=== PATIENT | male | born 1945 | race Caucasian/White ===

== ENCOUNTER 2017-07-04 07:08 | Day surgery (SDC) | payer MEDICARE ==
[~2017-07-04] VITALS: Ht 162.6 cm; Wt 115.8 kg
[~2017-07-04 07:08] MED LIST: B-COMPLEX PLUS1 TAB PO; BETAPACE AF160 MG PO; BUMEX2 MG PO; CADUET 5 MG-101 TAB PO; CARDURA 8MG TAB8 MG PO; COUMADIN 1MG1 MG/TAB PO; COUMADIN 3MG3 MG/TAB PO; COUMADIN4 MG PO; DUO-KAPS1 CAP PO; FLONASE NASAL S16 GM NS; LEVAQUIN 5500 MG/TA1 PO; MAREPA1200 MG PO; PRAVACHOL 40MG40 MG PO; VISTARIL50 MG PO
[2017-07-04 07:34] VITALS: BP 129/90; PULSE 74; TEMP 97.6
[2017-07-04] MEDS ORDERED: COUMADIN 77.5 MG/TAB PO (08:11)
[2017-07-04] MEDS ORDERED: LOTREL 5/10MG C1 CAP PO (08:12)
[2017-07-04] MEDS ORDERED: LASIX 40MG TABL40 MG PO (08:13)
[2017-07-04] MEDS ORDERED: BETAPACE 80MG80 MG PO (08:13)
[2017-07-04] MEDS ORDERED: CARDURA 8MG TAB8 MG PO (08:14)
[2017-07-04] MEDS ORDERED: ASTELIN NASAL S34 ML NAS (08:14)
[2017-07-04] MEDS ORDERED: FLONASE NASAL S16 GM NS (08:15)
[2017-07-04] MEDS ORDERED: MULTI VITAMINS1 TAB PO (08:15)
[2017-07-04] MEDS ORDERED: FISH OIL 1000MG1 CAP PO (08:16)
[2017-07-04] MEDS ORDERED: STOOL SOFTENER100 M2 PO (08:16)
[2017-07-04] MEDS ORDERED: B-121000 MCG PO (08:16)
[2017-07-04] MEDS ORDERED: METAMUCIL3.4 GM/DOS PO (08:17)
[2017-07-04 09:05] VITALS: BP 129/90; PULSE 72; TEMP 97.4
[2017-07-04 09:20] VITALS: BP 137/100; PULSE 61
[2017-07-04 10:43] VITALS: BP 138/90; PULSE 72
== END 2017-07-04 09:50 | disposition home or self-care (01) ==
LOC: SDCO 07:08
DX: Z12.11 Encounter for screening for malignant neoplasm of colon (principal); K57.30 Diverticulosis of large intestine without perforation or abscess without bleeding; K64.0 First degree hemorrhoids; I48.91 Unspecified atrial fibrillation; I10 Essential (primary) hypertension; G47.33 Obstructive sleep apnea (adult) (pediatric); F17.220 Nicotine dependence, chewing tobacco, uncomplicated; E66.01 Morbid (severe) obesity due to excess calories; Z79.01 Long term (current) use of anticoagulants
CPT/HCPCS: OP; J2704; J7030

== ENCOUNTER 2020-12-12 11:47 | Inpatient (IN) | payer MEDICARE ==
[~2020-12-12 11:47] MED LIST changes: +ALDACTONE 25MG25 M1 PO; +ASTELIN NASAL S34 ML NAS; +B-121000 MCG PO; +BETAPACE 80MG80 MG PO; +COUMADIN 77.5 MG/TAB PO; +FISH OIL 1000MG1 CAP PO; +K-DUR20 MEQ PO; +LASIX 40MG TABL40 MG PO; +LOTREL 5/10MG C1 CAP PO; +METAMUCIL3.4 GM/DOS PO; +MULTI VITAMINS1 TAB PO; +PROBIOTIC ACID1 EAC3 PO; +STOOL SOFTENER100 M2 PO; +TOPROL XL 50MG50 MG PO; +ZYLOPRIM 300MG300 MG PO
[2020-12-12 13:14] VITALS: BP 117/71; PULSE 103; TEMP 97.5
[2020-12-12 13:58] LABS: INR 1.1 (0.8-3.0); PROTHROMBIN TIME 12.1 SECONDS (9.7-12.8)
[2020-12-12 15:55] LABS: ARTERIAL BLD GAS O2 SATURATION 95.1 % (92-100); ARTERIAL BLOOD GAS BASE EXCESS -1.9 (-2-2); ARTERIAL BLOOD GAS HCO3 21.9 meq/L (22-26); ARTERIAL BLOOD GAS PCO2 34.6 mmHg (35-45); ARTERIAL BLOOD GAS PO2 72.7 mmHg (80-100); ARTERIAL BLOOD GAS pH 7.42 (7.35-7.45)
[2020-12-12 16:33] VITALS: BP 125/63; PULSE 56; TEMP 98.5
--- NOTE | 2020-12-12 16:48 | NUR ---
Patient transferred from [place] ED. Upon arrival full assessment was performed. Vitals were stable, BP 117/71, Pulse 103, Respirations 16, Temp 97.5, and SPO2 was 98% on bipap. No skin issues noted. Bilateral upper lobes were wheezy upon expiration. Bilateral lower lobes were wheezy upon expiration and inspiration. 2+ Edema was present on BLE. Pedal pulses were +1, radial pulses were +2. Two Int IV's were present. 20 gauge in the Left AC and a 20 gauge in the Right AC. Both of them flushed. No sign of inflammation or infiltration noted. Centeno present. No sign of drainage or leakage, urine light yellow. Patient does not C/O any pain or discomfort at this time. Dr. Greene is following. Patient switched to 3L via nasal cannula. SPO2 95%. Will continue to monitor. Call light within reach. Fall percautions in place.
[2020-12-12 19:51] VITALS: BP 102/75; PULSE 64; TEMP 98.2
[2020-12-12 23:15] VITALS: BP 93/44; PULSE 72; TEMP 97.8
[2020-12-13] VITALS (7 sets, daily range): BP systolic 92–110; BP diastolic 36–59; PULSE 63–86; TEMP 97.6–98.5
--- NOTE | 2020-12-13 04:57 | NUR ---
RESTING QUIETLY/SLEEPING, CURRENTLY IN RECLINER. ON O2 2 liters VIA N.C. DENIES PAIN. NO DYSPNEA AT REST. PT DID NOT DO WELL WITH BiPAP MASK DURING THE NIGHT, FREQUENTLY PULLING ON IT MAKING ALARMS GO OFF.
[2020-12-13 06:23] LABS: HEMATOCRIT 42.3 % (42.0-52.0); HEMOGLOBIN 13.8 g/dl (13.5-18.0); MEAN CELL VOLUME 94 fl (80.0-100.0); MEAN CORPUSCULAR HEMOGLOBIN 31 pg (27.0-31.0); MEAN CORPUSCULAR HGB CONC 33 g/dl (33.0-37.0); MEAN PLATELET VOLUME 12.8 fl (7.4-10.4); PLATELET COUNT 161 K/mm3 (130-400); RED BLOOD COUNT 4.48 M/mm3 (4.20-5.60); REDCELL DISTRIBUTION WIDTH-CV 15.1 % (11.5-14.5)
[2020-12-13 06:29] LABS: CALCIUM 8.8 mg/dL (8.4-10.2); CREATININE, serum 1.41 (0.66-1.25); POTASSIUM 4.2 mmol/L (3.4-5.0)
[2020-12-13 06:33] LABS: INR 1.1 (0.8-3.0); PROTHROMBIN TIME 12.2 SECONDS (9.7-12.8)
[2020-12-13 08:38] LABS: TROPONIN-I 0.062 ng/mL (0.000-0.035)
--- NOTE | 2020-12-13 08:45 | NUR ---
Shift assessment complete. Sitting up in recliner. NC off at this time, assisted pt in placing it back on, O2 set at 2 lpm. Denies SOA this AM. Lungs CTA. Heart rhythm remains Afib per telemetry w/rate controlled 70s-80s. Centeno in place w/clear yellow output. 3+ edema w/consuelo flaky skin to BLE. Troponin elevated at 0.062 this AM, trended down since yesterday, Lilian MOORE notified. Call light in reach.
[2020-12-13 08:55] LABS: TSH w REFLEX 1.58 uIU/mL (0.465-4.680)
[2020-12-13 09:05] LABS: BAND 7 % (0-10); LYMPHOCYTE 11 % (20.0-51.0); NEUTROPHILS 80 % (42.0-75.2); PLATELET ESTIMATE NORMAL (NORMAL)
--- NOTE | 2020-12-13 11:27 | NUR ---
Plan to return home with Jc in [place]. SW met with patient about care. Patient reports that PCP is Dr. Nelson and uses [facility] in [place], Patient shares that he workes with Dr. Elder and has bipap at home. [facility] is . Patient dneis the uses of any other DME. Patient shares that he has transportation home with his . Patient denies any concern of care supports. Will continue to follow for care supports. Educated on services available.
--- NOTE | 2020-12-13 11:49 | NUR ---
O2 sats 92-93% room air and denies SOA. NC removed and sats remaining stable.
--- NOTE | 2020-12-13 19:01 | NUR ---
Received report from Lory. Patient awake sitting in the recliner. He is on room air. With olson catheter draining clear, yellow urine. He states his bipap mask doesn't fit in his face and he wants to have nasal cannula at night instead.
--- NOTE | 2020-12-13 20:40 | NUR ---
Assesment done. Placed back O2 at 2lpm via NC due to telecom assistant called saying patient had episodes of PVC's and ask if we can put back the oxygen of the patient. Patient denies pain. His lower extremities are dry with discoloration. It has swelling as well. INT on left and right AC flushes well.
[2020-12-14] VITALS (8 sets, daily range): BP systolic 100–120; BP diastolic 51–77; PULSE 62–81; TEMP 97.3–98
--- NOTE | 2020-12-14 03:29 | NUR ---
Patient's bed alarm went off and upon entering his room, he was bleeding. He pulled out his IV on his left AC. When asked why he did that, he said I don't know. Asked patient if he knows where he is and he answered correctly. Verified to patient the date today and he is aware and oriented. Patient still has an IV on his left AC. Bed sheets, covers and gown were changed. Instructed patient not to pull his IV on left arm and not to pull his olson catheter as well. He verbalizes understanding. Bed alarm on.
--- NOTE | 2020-12-14 06:05 | NUR ---
Patient sitting in the recliner now. He removed his oxygen. He denies shortness of breath. Centeno catheter draining good urine output.
[2020-12-14 06:07] LABS: BASO % 0.1 % (0.0-2.0); GRAN # 9.7 (1.4-6.5); GRAN % 83.8 % (42.2-75.2); LYMPH # 0.7 (1.2-3.4); LYMPH % 6.2 % (20.0-51.0); MEAN CELL VOLUME 93 fl (80.0-100.0); MEAN CORPUSCULAR HGB CONC 33 g/dl (33.0-37.0); MEAN PLATELET VOLUME 12.6 fl (7.4-10.4); MONO # 1.1 (0.1-0.6); MONO % 9.3 % (1.7-9.3); PLATELET COUNT 138 K/mm3 (130-400); RED BLOOD COUNT 3.85 M/mm3 (4.20-5.60)
[2020-12-14 06:22] LABS: HEMATOCRIT 35.8 % (42.0-52.0); HEMOGLOBIN 11.8 g/dl (13.5-18.0); MEAN CORPUSCULAR HEMOGLOBIN 31 pg (27.0-31.0)
[2020-12-14 06:24] LABS: INR 1.8 (0.8-3.0); PROTHROMBIN TIME 19.9 SECONDS (9.7-12.8)
[2020-12-14 06:25] LABS: CALCIUM 8.7 mg/dL (8.4-10.2); CREATININE, serum 1.29 (0.66-1.25); POTASSIUM 4.8 mmol/L (3.4-5.0)
--- NOTE | 2020-12-14 08:29 | NUR ---
Pt was alert and oriented at shift assessment. When asked why he took out left IV, he states it got under him and he turned and it got pulled out. Pt ate all his breakfast by the time assessment was started. Had conversation with patient and was able to make clear thoughts, however, he would have some shortness of breath after multiple sentences. Overall, pt is doing well and has no concerns or pain at this time.
--- NOTE | 2020-12-14 09:05 | NUR ---
Initial visit; Patient thanked Showroom Executive Director for offering spiritual care. Showroom Executive Director wished Byron ayon.
[2020-12-14] MEDS ORDERED: PLAVIX 75MG TAB75 MG PO (09:15)
[2020-12-14] MEDS ORDERED: CORDARONE200 MG/TAB PO (09:15)
[2020-12-14] MEDS ORDERED: ZESTRIL 5MG5 MG PO (09:16)
[2020-12-14] MEDS ORDERED: LIPITOR 80MG80 MG PO (09:18)
--- NOTE | 2020-12-14 09:48 | NUR ---
Shared Services And Outsourcing Manager attended clinical rounds with the team. PT is recommending home with spouse.
--- NOTE | 2020-12-14 09:54 | NUR ---
A.fib heard when heart sounds assessed. Irregular rhythm, but normal rate
--- NOTE | 2020-12-14 11:18 | NUR ---
TALKED TO PT'S ON THE PHONE WHO IS CALLING TO CHECK ON THE PATIENT AT THIS TIME. THE PATIENT IS GOING TO BE STAYING ONE MORE NIGHT WITH ALL THE HOME MEDICATIONS VERIFIED. NO OTHER CONCERNS AT THIS TIME. EXERCISE OXIMETRY COMPLETED, AND PATIENT DOES NOT REQUIRE O2.
--- NOTE | 2020-12-14 13:52 | NUR ---
PATIENT EDUCATION PROVIDED ON HEART HEALTHY DIET. PT WAS VERY RECEPTIVE TO EDUCATION. AFTER EDUCATION, PT REQUESTED TO WALK AROUND THE UNIT TO STRETCH HIS LEGS AND HE TOLERATED THE WALK WELL. OVERALL, PT IS KIND AND WAS ADHERENT TO ALL PROCEDURES AND MEDICATIONS. HE EXPRESSED CONCERNS ABOUT HAVING TO STAY ANOTHER NIGHT, BUT STATES THERE ARE NO OTHER CONCERNS.
--- NOTE | 2020-12-14 14:20 | NUR ---
FATUMAN charting and assessment reviewed by this instructor, agree with documentation.
--- NOTE | 2020-12-14 15:22 | NUR ---
PT WAS FOUND UP IN HIS ROOM ATTEMPTING TO DRESS HIMSELF IN HIS OWN CLOTHING. STATES HE IS LEAVING TO GO DOWNTOWN. WHEN ASKED ORIENTATION QUESTIONS HE WAS UNABLE TO STATE WHERE HE WAS CORRECTLY. THE PATIENT STATES HE IS IN [facility]. WHEN REORIENTED, THE PATIENT STATED "WELL, YOU MUST HAVE HIT YOUR HEAD AND ARE SUPER CONFUSED LITTLE LADY". THE PT WAS ALERT AND ORIENTED OF THIS MORNING, AND HAS TAKEN A SLIGHT DECLINE. THE PATIENT HAS BEEN WALKING AROUND THE HOSPITAL WITH PT AND WITH PCT'S. THE PROVIDER WAS NOTIFIED OF THIS CHANGE IN MENTAL STATUS. NO FURTHER CONCERNS AT THIS TIME.
--- NOTE | 2020-12-14 19:29 | NUR ---
PT SITTING IN RECLINER AT THIS TIME. REPORT GIVEN TO JEWELS VILLAGOMEZ NO FURTHER CONCERNS.
--- NOTE | 2020-12-14 20:39 | NUR ---
Awake, alert, oriented x 4, able to make needs know, made comfortable in bed- elevated ble on pillows for +2 edema, offered fluids, snack, call suarez w/i reach, lights dimmed, denies pain, will continue to monitor.
--- NOTE | 2020-12-15 02:02 | NUR ---
Patient pulled IV out - tip intact, tolerated well, Call placed to Mercedes Mcnair PA - NON: May leave IV out. Updated patient on plan of care
[2020-12-15 02:59] VITALS: BP 106/60; PULSE 68; TEMP 98
[2020-12-15 06:43] LABS: BASO % 0.3 % (0.0-2.0); EOS # 0.2 (0.0-0.7); EOS % 2.2 % (0-4.0); GRAN # 4.3 (1.4-6.5); GRAN % 63.8 % (42.2-75.2); HEMATOCRIT 37.5 % (42.0-52.0); HEMOGLOBIN 12.3 g/dl (13.5-18.0); LYMPH # 1.4 (1.2-3.4); LYMPH % 21.3 % (20.0-51.0); MEAN CELL VOLUME 93 fl (80.0-100.0); MEAN CORPUSCULAR HEMOGLOBIN 30 pg (27.0-31.0); MEAN CORPUSCULAR HGB CONC 33 g/dl (33.0-37.0); MEAN PLATELET VOLUME 12.4 fl (7.4-10.4); MONO # 0.8 (0.1-0.6); PLATELET COUNT 142 K/mm3 (130-400); RED BLOOD COUNT 4.05 M/mm3 (4.20-5.60); REDCELL DISTRIBUTION WIDTH-CV 15.1 % (11.5-14.5)
--- NOTE | 2020-12-15 06:45 | NUR ---
PT SITTING IN RECLINER, ASKING WHEN HE WILL BE GOING HOME. NO CONCERNS AT THIS TIME. NO IV, NO TELEMETRY.
[2020-12-15 07:00] LABS: CALCIUM 8.5 mg/dL (8.4-10.2); CREATININE, serum 1.23 (0.66-1.25); POTASSIUM 3.9 mmol/L (3.4-5.0)
[2020-12-15 07:11] LABS: INR 2.1 (0.8-3.0); PROTHROMBIN TIME 24.1 SECONDS (9.7-12.8)
[2020-12-15 07:27] VITALS: BP 101/56; PULSE 61; TEMP 98.1
--- NOTE | 2020-12-15 08:43 | NUR ---
Charger Operator attended clinical rounds with the team. The patient is to discharge home today, 12/15. After rounds, SW met with the patient to present the IM form and review the discharge plan. The patient verbalized understanding the IM form and gave this SW permission to sign the form on his behalf. A copy was provided to the patient, original in the chart. The patient will continue with cardiac rehab at [facility] twice a week. He states he is about half way through his course of rehab. The patient's will transport him home. There are no additional needs at this time.
--- NOTE | 2020-12-15 09:10 | NUR ---
Follow-up visit; Patient states he is so pleased with the care he has received here in [facility] and thanked Pta for looking in on him and offering encouragement and God's blessings.
[2020-12-15 11:03] VITALS: BP 99/56; PULSE 60; TEMP 97.4
--- NOTE | 2020-12-15 11:05 | NUR ---
Assessment as charted. Pt resting in recliner upon arrival. HR irreg at 61 BPM. 2+ edema in lower bilat extremities. Denies c/o pain. Pt "ready to go home".
[2020-12-15 12:25] VITALS: BP 100/54; PULSE 75; TEMP 97.8
== END 2020-12-15 13:50 | disposition home or self-care (01) | DRG 280 ==
LOC: MEDICAL 11:47
PROVIDERS: Family Medicine; Physician Assistant
DX: I11.0 Hypertensive heart disease with heart failure (principal); I21.A1 Myocardial infarction type 2; J96.01 Acute respiratory failure with hypoxia; E87.2 Acidosis; I48.20 Chronic atrial fibrillation, unspecified; N17.9 Acute kidney failure, unspecified; N40.0 Benign prostatic hyperplasia without lower urinary tract symptoms; M10.9 Gout, unspecified; E87.6 Hypokalemia; E03.9 Hypothyroidism, unspecified; G47.33 Obstructive sleep apnea (adult) (pediatric); E66.9 Obesity, unspecified; Z20.822 Contact with and (suspected) exposure to COVID-19; D64.9 Anemia, unspecified; I50.41 Acute combined systolic (congestive) and diastolic (congestive) heart failure; Z79.01 Long term (current) use of anticoagulants; Z87.891 Personal history of nicotine dependence
CPT/HCPCS: 99223-AI; 99232-AI; 99239; J1940; J2920